=== PATIENT | female | born 1995 | race Caucasian/White ===

== ENCOUNTER 2020-10-27 21:00 | Emergency (ER) | payer BC, OTHER ==
--- NOTE | 2020-10-27 21:08 | EDM.PDOC ---
ED HPI GENERAL MEDICAL PROBLEM - General Stated Complaint: UTI Time Seen by Provider: 10/27/20 21:01 Source of Information: Reports: Patient History Limitations: Reports: No Limitations - History of Present Illness INITIAL COMMENTS - FREE TEXT/NARRATIVE: 25-year-old female history of UTI presents with dysuria today. Patient denies fever, chills, headache, chest pain, shortness of breath, abdominal pain, focal numbness or weakness. ROS: A 10-point review of systems, other than pertinent positives and negatives as stated per HPI, is otherwise negative Past medical history: No additional pertinent history Past Surgical history: No additional pertinent history Social history: No additional pertinent history Family history: No additional pertinent history PHYSICAL EXAM General: AOx4, GCS = 15, No distress HEENT: dry mucous membrane Neck: supple, no meningismus, no Kernig or Brudzinski Cardiac: S1S2 RRR Respiratory: CTAB, no crackles or rales, no wheezing Abdomen: Soft, nontender, no rebound or guarding, nondistended, no pulsatile mass. Back: nontender Musculoskeletal: NVI distally, no deformity Neuro: No focal deficits, CN 2 - 12 WNL. urinary Pain Score (Numeric/FACES): 9 - Related Data Allergies Allergy/AdvReac Type Severity Reaction Status Date / Time No Known Allergies Allergy Verified 10/27/20 21:12 Home Meds: Home Meds Buprenorphine HCl/Naloxone HCl [Suboxone 4 mg-1 mg Sl Film] 8 mg PO DAILY 10/27/20 [History] Phenazopyridine [Pyridium] 100 mg PO TID PRN #15 tab 10/27/20 [Rx] cephALEXin [Keflex] 500 mg PO Q8H #15 cap 10/27/20 [Rx] ED ROS GENERAL - Review of Systems Review Of Systems: See Below (see dictation) ED EXAM, RENAL/ - Physical Exam Exam: See Below (see dictation) Course - Vital Signs Last Recorded V/S: Last Vital Signs Temp 97.8 F 10/27/20 21:12 Pulse 75 10/27/20 21:12 Resp 18 10/27/20 21:12 BP 91/51 L 10/27/20 21:12 Pulse Ox 97 10/27/20 21:12 - Orders/Labs/Meds Orders: Active Orders 24 hr Category Date Time Status CULTURE URINE [RM] Stat Lab 10/27/20 21:01 Received Labs: Laboratory Tests 10/27/20 10/27/20 Range/Units 21:01 21:01 Urine Color YELLOW Urine Appearance SLT CLOUDY Urine pH 7.5 (5.0-8.0) Ur Specific [place] <= 1.005 (1.001-1.035) Urine Protein NEGATIVE (NEGATIVE) mg/dL Urine Glucose (UA) NEGATIVE (NEGATIVE) mg/dL Urine Ketones NEGATIVE (NEGATIVE) mg/dL Urine Occult Blood MODERATE H (NEGATIVE) Urine Nitrite POSITIVE H (NEGATIVE) Urine Bilirubin NEGATIVE (NEGATIVE) Urine Urobilinogen 0.2 (<2.0) EU/dL Ur Leukocyte Esterase MODERATE H (NEGATIVE) Urine RBC 1-3 (0-2/HPF) Urine WBC 10-14 (0-5/HPF) Ur Epithelial Cells FEW (NONE-FEW) Urine Bacteria FEW (NEGATIVE) Urine HCG, Qual NEGATIVE (NEGATIVE) - Re-Assessments/Exams Free Text/Narrative Re-Assessment/Exam: 10/27/20 21:37 She is currently stable for discharge. I performed a repeat exam and did not appreciate new abnormal findings. Patient exhibits normal vital signs and has a normal gait on road test. I advised the patient to return to the ER for reevaluation if symptoms worsened, including fever, worsening pain, or any other worrisome symptoms. I instructed the patient to follow up with their PCP within 2-3 days. MEDICAL DECISION MAKING: I reviewed the patients past medical records, lab and radiographic findings. I discussed the case with the patient. My differential diagnosis included: UTI, cystitis. Departure - Departure Time of Disposition: 21:30 Disposition: Home, Self-Care 01 Condition: Good Clinical Impression: UTI (urinary tract infection) - Discharge Information *PRESCRIPTION DRUG MONITORING PROGRAM REVIEWED*: Not Applicable *COPY OF PRESCRIPTION DRUG MONITORING REPORT IN PATIENT JAZZ: Not Applicable Prescriptions: cephALEXin [Keflex] 500 mg PO Q8H #15 cap Phenazopyridine [Pyridium] 100 mg PO TID PRN #15 tab PRN Reason: Abdominal Pain Instructions: Urinary Tract Infection, Adult Referrals: Andrea Weaver MD [Primary Care Provider] - 3 Days Forms: ED Department Discharge Additional Instructions: The need for follow-up, as well as the timing and circumstances, are variable depending upon the specifics of your emergency department visit. If you don't have a primary care physician on staff, we will provide you with a referral. We always advise you to contact your personal physician following an emergency department visit to inform them of the circumstance of the visit and for follow-up with them and/or the need for any referrals to a consulting specialist. The emergency department will also refer you to a specialist when appropriate. This referral assures that you have the opportunity for follow-up care with a specialist. All of these measure are taken in an effort to provide you with optimal care, which includes your follow-up. Under all circumstances we always encourage you to contact your private physician who remains a resource for coordinating your care. When calling for follow-up care, please make the office aware that this follow-up is from your recent emergency room visit. If for any reason you are refused follow-up, please contact the Emergency Department at and asked to speak to the emergency department charge nurse. If you do not have a primary care doctor, please follow up with the clinics below within 3-5 days. [facility] - Primary Care [address] [place] [id number] [facility] [address] [place] [address] Sepsis Event Note (ED) - Focused Exam Vital Signs: Vital Signs Temp Pulse Resp BP Pulse Ox 10/27/20 21:12 97.8 F 75 18 91/51 L 97 - My Orders Last 24 Hours: My Active Orders 10/27/20 21:01 CULTURE URINE [RM] Stat - Assessment/Plan Last 24 Hours: My Active Orders 10/27/20 21:01 CULTURE URINE [] Stat
== END 2020-10-27 21:47 | disposition home or self-care (01) ==
LOC: MW.ED 21:00
DX: N39.0 Urinary tract infection, site not specified (principal)
CPT/HCPCS: 81001; 81025; 87086; 87088; 87186; 99283

== ENCOUNTER 2021-09-02 15:10 | Observation (INO) | payer MEDICAID, OTHER ==
[2021-09-02] MEDS ORDERED: Sodium Chloride 0.9% 2.5 ML Syringe FLUSH PRN (15:35)
[2021-09-02] MEDS ORDERED: Sodium Chloride 0.9% 10 ML Syringe FLUSH PRN (15:35)
[2021-09-02] MEDS ORDERED: Diphtheria,Pertussis(Acell),Tetanus Vaccine 0.5 ML Syringe IM ONE ×2 (15:36→16:30)
[2021-09-02] MEDS ORDERED: Proparacaine 0.5% Ophth Soln 15 ML Bottle EYEBOTH STA (15:36)
--- NOTE | 2021-09-02 15:51 | EDM.PDOC ---
ED HPI GENERAL MEDICAL PROBLEM - General Chief Complaint: Body Fluid Exposure Stated Complaint: EMS Time Seen by Provider: 09/02/21 15:29 - History of Present Illness INITIAL COMMENTS - FREE TEXT/NARRATIVE: 26-year-old female presents complaining of shortness of breath and chest pain after inhalation. 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 Medics stated that the patient was wheezing for which albuterol was given. The patient is complaining of shortness of breath and chest pain and cough that started just after this inhalation. No eye pain or change in vision. No difficulty swallowing Treatments AGENCY SALES MANAGEMENT ASSISTANT: Reports: Other (see below) Other Treatments AGENCY SALES MANAGEMENT ASSISTANT: duoneb given by EMS chest Pain Score (Numeric/FACES): 8 - Related Data Allergies Allergy/AdvReac Type Severity Reaction Status Date / Time No Known Allergies Allergy Verified 09/02/21 21:06 Home Meds: Home Meds Buprenorphine HCl/Naloxone HCl [Suboxone 4 mg-1 mg Sl Film] 8 mg SL BID 10/27/20 [History] Levothyroxine 50 mcg PO DAILY 09/02/21 [History] Past Medical History HEENT History: Reports: None Cardiovascular History: Reports: None Respiratory History: Reports: None Gastrointestinal History: Reports: None Genitourinary History: Reports: None CHIEF OF STAFF History: Reports: None Musculoskeletal History: Reports: None Neurological History: Reports: None Psychiatric History: Reports: Addiction Endocrine/Metabolic History: Reports: Hypothyroidism Hematologic History: Reports: None Immunologic History: Reports: None Oncologic (Cancer) History: Reports: None - Infectious Disease History Infectious Disease History: Reports: None - Past Surgical History Head Surgeries/Procedures: Reports: None Social & Family History - Family History Family Medical History: No Pertinent Family History - Tobacco Use Tobacco Use Status *Q: Never Tobacco User - Caffeine Use Caffeine Use: Reports: Coffee - Recreational Drug Use Recreational Drug Use: Yes Drug Use in Last 12 Months: No ED ROS GENERAL - Review of Systems Review Of Systems: Comprehensive ROS is negative, except as noted in HPI. ED EXAM, GENERAL - Physical Exam Exam: See Below Free Text/Narrative:: CONSTITUTIONAL: well appearing in no acute distress SKIN: Warm, dry, and intact without rash HENT: Normocephalic, atraumatic. Eyes show no conjunctival injection or tearing. PULMONARY: clear to ausculation bilaterally. No rales, rhonchi, wheezing CARDIOVASCULAR: regular rate, No murmur, rubs, or gallops GASTROINTESTINAL: soft, nondistended, nontender NEUROLOGIC: normal speech, 3 motor function grossly intact MUSCULOSKELETAL: no gross deformities, atraumatic PSYCHIATRIC: normal mood and affect #1 Interpretation Time: 15:45 EKG Interpretation Comments: EKG: NSR, nonspecific ST/T changes, Rate -85 Course - Vital Signs Text/Narrative:: Patient presents after inhalation of mixed chemical cleaning products. The patient did have some mild hypoxia into the 92% range. She has a wet sounding cough that she did not have previous to the inhalation. Chest x-ray does not show any findings with the patient be admitted for observation to ensure that there is no progression of any hypoxia or respiratory distress. Cannot exclude chloramine aspiration or other chemical pneumonitis 3:42 poison control contacted. States most of the toilet bowl director of knowledge management are acidic with 5-15% HCL and some with bleach. States just supportive mnx Last Recorded V/S: Last Vital Signs Temp 36.9 C 09/03/21 04:00 Pulse 80 09/03/21 04:00 Resp 14 09/03/21 04:00 BP 93/47 L 09/03/21 04:00 Pulse Ox 95 09/03/21 04:00 - Orders/Labs/Meds Orders: Active Orders 24 hr Category Date Time Status Cardiac Monitoring [RC] . DIRECTED Care 09/02/21 15:35 Active Pulse Oximetry [RC] ASDIRECTED Care 09/02/21 15:35 Active Vaccine to be Administered/Admin Charge [RC] ASDIRECTED Care 09/02/21 15:37 Active CBC WITH AUTO DIFF [HEME] Stat Lab 09/02/21 15:35 Received Sodium Chloride 0.9% [Saline Flush] Med 09/02/21 15:35 Active 10 ml FLUSH ASDIRECTED PRN Sodium Chloride 0.9% [Saline Flush] Med 09/02/21 15:35 Active 2.5 ml FLUSH ASDIRECTED PRN Saline Lock Insert [OM.PC] Stat Oth 09/02/21 15:35 Ordered Medication Orders Acetaminophen (Acetaminophen 325 Mg Tab) 650 mg PO Q4H PRN PRN Reason: Pain (Mild 1-3)/fever Albuterol/Ipratropium (Albuterol/Ipratropium 3.0-0.5 Mg/3 Ml Neb Soln) 3 ml NEB Q4HRRT PRN PRN Reason: Shortness Of Breath/wheezing Buprenorphine Hcl/Naloxone Hcl [ Suboxone 8mg-2mg] # Own Med# 4 mg SL BID TAYLOR Last Admin: 09/02/21 22:26 Dose: 4 mg Documented by: ALEJANDRINA Ondansetron HCl (Ondansetron 4 Mg/2 Ml Sdv) 4 mg IVPUSH Q4H PRN PRN Reason: Nausea Sodium Chloride (Sodium Chloride 0.9% 10 Ml Syringe) 10 ml FLUSH ASDIRECTED PRN PRN Reason: Keep Vein Open Sodium Chloride (Sodium Chloride 0.9% 2.5 Ml Syringe) 2.5 ml FLUSH ASDIRECTED PRN PRN Reason: Keep Vein Open Labs: Laboratory Tests 09/02/21 Range/Units 15:35 Sodium 136 (136-145) mmol/L Potassium 2.9 L (3.5-5.1) mmol/L Chloride 102 (98-107) mmol/L Carbon Dioxide 25.4 (21.0-32.0) mmol/L BUN 12 (7.0-18.0) mg/dL Creatinine 0.7 (0.6-1.0) mg/dL Est Cr Clr Drug Dosing 100.74 mL/min Estimated GFR (MDRD) > 60.0 ml/min Glucose 128 H (74-106) mg/dL Calcium 8.5 (8.5-10.1) mg/dL Total Bilirubin 0.4 (0.2-1.0) mg/dL AST 15 (15-37) IU/L ALT 23 (14-63) IU/L Alkaline Phosphatase 65 (46-116) U/L Total Protein 7.1 (6.4-8.2) g/dL Albumin 3.4 (3.4-5.0) g/dL Globulin 3.7 (2.6-4.0) g/dL Albumin/Globulin Ratio 0.9 (0.9-1.6) Meds: Medications Generic Name Dose Route Start Last Admin Trade Name Freq PRN Reason Stop Dose Admin Acetaminophen 650 mg 09/02/21 18:21 Acetaminophen 325 Mg Tab PO Q4H PRN Pain (Mild 1-3)/fever Albuterol/Ipratropium 3 ml 09/02/21 18:21 Albuterol/Ipratropium 3.0-0.5 Mg/3 Ml Neb Soln NEB Q4HRRT PRN Shortness Of Breath/wheezing Buprenorphine Hcl/ 4 mg 09/02/21 22:00 09/02/21 22:26 Naloxone Hcl [ SL 4 mg Suboxone 8mg-2mg] # BID ATYLOR Administration Own Med# Ondansetron HCl 4 mg 09/02/21 18:21 Ondansetron 4 Mg/2 Ml Sdv IVPUSH Q4H PRN Nausea Sodium Chloride 10 ml 09/02/21 15:35 Sodium Chloride 0.9% 10 Ml Syringe FLUSH ASDIRECTED PRN Keep Vein Open Sodium Chloride 2.5 ml 09/02/21 15:35 Sodium Chloride 0.9% 2.5 Ml Syringe FLUSH ASDIRECTED PRN Keep Vein Open Discontinued Medications Generic Name Dose Route Start Last Admin Trade Name Freq PRN Reason Stop Dose Admin Diphtheria/Tetanus/Acell Pertussis 0.5 ml 09/02/21 16:30 09/02/21 16:57 Diphtheria,Pertussis(Acell),Tetanus Vaccine 0.5 Ml Syringe IM 09/02/21 16:31 0.5 ml .ONCE ONE Administration Fluorescein Sodium 1 mg 09/02/21 16:19 09/02/21 17:54 Fluorescein 1 Mg Ophth Strip EYEBOTH 09/02/21 16:20 Not Given ONETIME ONE Potassium Chloride 40 meq 09/02/21 16:23 09/02/21 16:58 Potassium Chloride 20 Meq Tab.Er PO 09/02/21 16:24 40 meq ONETIME ONE Administration Potassium Chloride 40 meq 09/02/21 21:25 09/02/21 22:25 Potassium Chloride 20 Meq Tab.Er PO 09/02/21 21:26 40 meq ONETIME ONE Administration Proparacaine HCl 1 ml 09/02/21 15:36 09/02/21 17:07 Proparacaine 0.5% Ophth Soln 15 Ml Bottle EYEBOTH 09/02/21 15:37 Not Given NOW STA Tetracaine HCl 1 ml 09/02/21 16:54 09/02/21 17:07 Tetracaine Hcl/Pf 0.5% 4 Ml Bottle EYEBOTH 09/02/21 16:55 Not Given ASDIRECTED ONE Departure - Departure Time of Disposition: 18:06 Disposition: Refer to Observation Condition: Good Clinical Impression: Chemical pneumonitis, Hypoxia - Discharge Information Sepsis Event Note (ED) - Evaluation Sepsis Screening Result: No Definite Risk - My Orders Last 24 Hours: My Active Orders 09/02/21 15:35 Cardiac Monitoring [RC] . DIRECTED Pulse Oximetry [RC] ASDIRECTED CBC WITH AUTO DIFF [HEME] Stat Sodium Chloride 0.9% [Saline Flush] 10 ml FLUSH ASDIRECTED PRN Sodium Chloride 0.9% [Saline Flush] 2.5 ml FLUSH ASDIRECTED PRN Saline Lock Insert [OM.PC] Stat 09/02/21 15:37 Vaccine to be Administered/Admin Charge [RC] ASDIRECTED - Assessment/Plan Last 24 Hours: My Active Orders 09/02/21 15:35 Cardiac Monitoring [RC] . DIRECTED Pulse Oximetry [RC] ASDIRECTED CBC WITH AUTO DIFF [HEME] Stat Sodium Chloride 0.9% [Saline Flush] 10 ml FLUSH ASDIRECTED PRN Sodium Chloride 0.9% [Saline Flush] 2.5 ml FLUSH ASDIRECTED PRN Saline Lock Insert [OM.PC] Stat 09/02/21 15:37 Vaccine to be Administered/Admin Charge [RC] ASDIRECTED
[2021-09-02 16:07] LABS: BLOOD UREA NITROGEN,BUN 12 mg/dL (7.0-18.0); CARBON DIOXIDE,CO2 25.4 mmol/L (21.0-32.0); CHLORIDE,CL 102 mmol/L (98-107); GLUCOSE RANDOM 128 mg/dL (74-106); POTASSIUM,K 2.9 mmol/L (3.5-5.1); SODIUM,NA 136 mmol/L (136-145)
[2021-09-02] MEDS ORDERED: Fluorescein 1 MG Ophth Strip EYEBOTH ONE (16:19)
[2021-09-02] MEDS ORDERED: Potassium Chloride 20 MEQ Tab.ER PO ONE ×2 (16:23→21:25)
--- NOTE | 2021-09-02 16:24 | CR ---
INDICATION: Chest pain. Inhaled chemicals. TECHNIQUE: Chest 1 view. COMPARISON: None. FINDINGS: Cardiovascular and mediastinum: Heart size and vasculature are normal in caliber and appearance. Lungs and pleural spaces: Lungs are clear. No sign of infiltrate or mass. No sign of pleural effusion. No pneumothorax. Bones and soft tissues: No significant findings. IMPRESSION: Negative chest. Dictated by Jesse Vásquez MD @ 09/02/2021 4:22:48 PM (Electronically Signed)
[2021-09-02] MEDS ORDERED: Tetracaine HCl/PF 0.5% 4 ML Bottle EYEBOTH ONE (16:54)
--- NOTE | 2021-09-02 18:17 | PCM.HP.2 ---
H&P History of Present Illness - General Date of Service: 09/02/21 Admit Problem/Dx: Admission Diagnosis/Problem Admission Diagnosis/Problem Hypoxia - History of Present Illness Initial Comments - Free Text/Narative: 26-year-old female with a history of hypothyroidism presents to the ER after she was mixing cleaning solutions and accidentally inhaled. 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 When she opened the bottle she states "gas" came out and made contact with her face and she also inhaled. She immediately began coughing and felt her face burning. She ran up to the sink and washed her face. She felt dizzy and laid on the ground. She was brought to the ER. Poison control was contacted by the ER and they stated that most of the level electric meter tester are acidic with 5 to 15% HCl and some with bleach. Advised supportive management. Patient's temperature is 35.8. Pulse is 80. Blood pressure is 110/60. Saturating 95% on room air. CBC unremarkable. Initial potassium was 2.9 and was repleted. Patient received tetanus vaccination. Patient continues to cough and will be admitted for chemical pneumonitis. Patient denies smoking. Patient denies illicit drug use. Social alcohol use only. CODE STATUS: Full code. chest Pain Score (Numeric/FACES): 8 - Related Data Allergies/Adverse Reactions: Allergies Allergy/AdvReac Type Severity Reaction Status Date / Time No Known Allergies Allergy Verified 09/02/21 21:06 Home Medications: Home Meds Buprenorphine HCl/Naloxone HCl [Suboxone 4 mg-1 mg Sl Film] 8 mg SL BID 10/27/20 [History] Levothyroxine 50 mcg PO DAILY 09/02/21 [History] Past Medical History HEENT History: Reports: None Cardiovascular History: Reports: None Respiratory History: Reports: None Gastrointestinal History: Reports: None Genitourinary History: Reports: None DIRECTOR GLOBAL DEVELOPMENT History: Reports: None Musculoskeletal History: Reports: None Neurological History: Reports: None Psychiatric History: Reports: Addiction Endocrine/Metabolic History: Reports: Hypothyroidism Hematologic History: Reports: None Immunologic History: Reports: None Oncologic (Cancer) History: Reports: None - Infectious Disease History Infectious Disease History: Reports: None - Past Surgical History Head Surgeries/Procedures: Reports: None Social & Family History - Family History Family Medical History: No Pertinent Family History - Tobacco Use Tobacco Use Status *Q: Never Tobacco User - Caffeine Use Caffeine Use: Reports: Coffee - Recreational Drug Use Recreational Drug Use: Yes Drug Use in Last 12 Months: No H&P Review of Systems - Review of Systems: Review Of Systems: See Below General: Denies: Fever, Chills HEENT: Reports: Headaches Pulmonary: Reports: Shortness of Breath, Cough. Denies: Sputum Cardiovascular: Denies: Chest Pain, Palpitations Gastrointestinal: Denies: Abdominal Pain, Anorexia, Nausea, Vomiting Genitourinary: Denies: Dysuria Musculoskeletal: Denies: Leg Pain Skin: Denies: Cyanosis, Rash Neurological: Denies: Confusion, Dizziness, Numbness, Paresthesia Exam - Exam Exam: See Below - Vital Signs Vital Signs: Last Vital Signs Temp 98.1 F 09/02/21 17:55 Pulse 80 09/02/21 17:55 Resp 18 09/02/21 17:55 BP 105/51 L 09/02/21 17:55 Pulse Ox 98 09/02/21 17:55 Weight: 125 lb - Exam General: Alert, Oriented, Cooperative. No: Mild Distress HEENT: Conjunctiva Clear, EACs Clear, EOMI, Mucosa Moist & [place], Nares Patent, Normal Nasal Septum, Posterior Pharynx Clear, Pupils Equal. No: Rhinitis Neck: Supple, Trachea Midline, Full Range of Motion Lungs: Clear to Auscultation Cardiovascular: Regular Rate, Regular Rhythm GI/Abdominal Exam: Normal Bowel Sounds, Soft, Non-Tender Back Exam: Normal Inspection Extremities: Normal Inspection, No Pedal Edema Peripheral Pulses: 2+: Dorsalis Pedis (L), Dorsalis Pedis (R) Skin: Warm, Dry, Intact Neurological: Cranial Nerves Intact. No: Focal Deficit - Patient Data Lab Results Last 24 hrs: Laboratory Results - last 24 hr 09/02/21 Range/Units 15:35 Sodium 136 (136-145) mmol/L Potassium 2.9 L (3.5-5.1) mmol/L Chloride 102 (98-107) mmol/L Carbon Dioxide 25.4 (21.0-32.0) mmol/L BUN 12 (7.0-18.0) mg/dL Creatinine 0.7 (0.6-1.0) mg/dL Est Cr Clr Drug Dosing 100.74 mL/min Estimated GFR (MDRD) > 60.0 ml/min Glucose 128 H (74-106) mg/dL Calcium 8.5 (8.5-10.1) mg/dL Total Bilirubin 0.4 (0.2-1.0) mg/dL AST 15 (15-37) IU/L ALT 23 (14-63) IU/L Alkaline Phosphatase 65 (46-116) U/L Total Protein 7.1 (6.4-8.2) g/dL Albumin 3.4 (3.4-5.0) g/dL Globulin 3.7 (2.6-4.0) g/dL Albumin/Globulin Ratio 0.9 (0.9-1.6) Result Diagrams: 09/03/21 06:18 09/03/21 06:18 Sepsis Event Note - Evaluation Sepsis Screening Result: No Definite Risk - Focused Exam Vital Signs: Vital Signs Temp Pulse Resp BP Pulse Ox 09/02/21 17:55 98.1 F 80 18 105/51 L 98 09/02/21 16:40 80 108/59 L 94 L 09/02/21 15:40 86 112/53 L 94 L 09/02/21 15:21 96.5 F L 88 20 106/53 L 98 - Problem List (1) Chemical pneumonitis SNOMED Code(s): 702872367 ICD Code: J68.0 - BRONCHITIS & PNEUMONITIS D/T CHEMICALS, GAS, FUMES & VAPORS Status: Acute Current Visit: Yes Problem List Initiated/Reviewed/Updated: Yes Orders Last 24hrs: Active Orders 24 hr Category Date Time Status Admission Status [Patient Status] [ADT] Stat ADT 09/02/21 18:04 Active Cardiac Monitoring [RC] . DIRECTED Care 09/02/21 15:35 Active Pulse Oximetry [RC] ASDIRECTED Care 09/02/21 15:35 Active Vaccine to be Administered/Admin Charge [RC] ASDIRECTED Care 09/02/21 15:37 Active CBC WITH AUTO DIFF [HEME] Stat Lab 09/02/21 15:35 Received CORONAVIRUS COVID-19 SIDRA [MOLEC] Stat Lab 09/02/21 18:06 Received Sodium Chloride 0.9% [Saline Flush] Med 09/02/21 15:35 Active 10 ml FLUSH ASDIRECTED PRN Sodium Chloride 0.9% [Saline Flush] Med 09/02/21 15:35 Active 2.5 ml FLUSH ASDIRECTED PRN Saline Lock Insert [OM.PC] Stat Oth 09/02/21 15:35 Ordered Medication Orders Sodium Chloride (Sodium Chloride 0.9% 10 Ml Syringe) 10 ml FLUSH ASDIRECTED PRN PRN Reason: Keep Vein Open Sodium Chloride (Sodium Chloride 0.9% 2.5 Ml Syringe) 2.5 ml FLUSH ASDIRECTED PRN PRN Reason: Keep Vein Open Assessment/Plan Comment:: Chemical inhalation injury: Poison control recommended monitoring. -Telemetry. Zofran for nausea/vomiting. IV fluids. Repleted potassium. CODE STATUS: Full code.
[2021-09-02] MEDS ORDERED: Acetaminophen 325 MG Tab PO PRN (18:21)
[2021-09-02] MEDS ORDERED: Albuterol/Ipratropium 3.0-0.5 MG/3 ML Neb Soln NEB PRN (18:21)
[2021-09-02] MEDS ORDERED: Ondansetron 4 MG/2 ML SDV IVPUSH PRN (18:21)
[2021-09-02] MEDS: NALOXONE HCL SL SCH (22:26)
[2021-09-02] MEDS: BUPRENORPHINE HCL SL SCH (22:26)
[2021-09-03 07:54] LABS: BLOOD UREA NITROGEN,BUN 10 mg/dL (7.0-18.0); CARBON DIOXIDE,CO2 20.5 mmol/L (21.0-32.0); CHLORIDE,CL 105 mmol/L (98-107); GLUCOSE RANDOM 94 mg/dL (74-106); SODIUM,NA 134 mmol/L (136-145)
--- NOTE | 2021-09-03 09:17 | PCM.DCSUM1 ---
Discharge Summary - Hospital Course Free Text/Narrative:: 26-year-old female with a history of hypothyroidism presented to the ER after she was mixing cleaning solutions and accidentally inhaled. 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 When she opened the bottle she states "gas" came out and made contact with her face and she also inhaled. She immediately began coughing and felt her face burning. She ran up to the sink and washed her face. She felt dizzy and laid on the ground. She was brought to the ER. 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 Advised supportive management. Chest x-ray was unremarkable. Initial potassium was 2.9 and was repleted. Patient received tetanus vaccination. Patient was monitored overnight. Telemetry was unremarkable. Morning CBC and CMP were unremarkable. Potassium was 4.0. Patient is breathing normally on room air with no signs of distress or airway edema. Lungs are clear to auscultation bilaterally. Oral mucosa is moist. Patient denies cough. Patient denies difficulty breathing. Poison control was contacted this morning and they stated patient was cleared. Patient stable at discharge. - Discharge Data Discharge Date: 09/03/21 Discharge Disposition: Home, Self-Care 01 Condition: Stable - Referral to Home Health Primary Care Physician: Andrea Weaver MD - Discharge Diagnosis/Problem(s) (1) Chemical pneumonitis SNOMED Code(s): 976866686 ICD Code: J68.0 - BRONCHITIS & PNEUMONITIS D/T CHEMICALS, GAS, FUMES & VAPORS Status: Acute Current Visit: Yes - Patient Instructions Diet: Regular Diet as Tolerated Notify Provider of: Fever, Increased Pain Other/Special Instructions: You are monitored in the hospital for inhalation injury as per recommendations from poison control. Please avoid chemicals which may cause injury in the future. If you experience chest pain, palpitations, wheezing, difficulty breathing, air hunger, fever, chills, peeling of skin, dizziness, loss of consciousness, swelling in your legs please seek medical attention immediately. - Discharge Plan *PRESCRIPTION DRUG MONITORING PROGRAM REVIEWED*: Not Applicable *COPY OF PRESCRIPTION DRUG MONITORING REPORT IN PATIENT JAZZ: Not Applicable Home Medications: Home Meds Buprenorphine HCl/Naloxone HCl [Suboxone 4 mg-1 mg Sl Film] 8 mg SL BID 10/27/20 [History] Levothyroxine 50 mcg PO DAILY 09/02/21 [History] Oxygen Therapy Mode: Room Air Forms: ED Department Discharge Referrals: Andrea Weaver MD [Primary Care Provider] - - Discharge Summary/Plan Comment DC Time >30 min.: Yes Total # of Minutes for Discharge Time: 45 - General Info Admission Dx/Problem (Free Text: Admission Diagnosis/Problem Admission Diagnosis/Problem Hypoxia - Review of Systems General: Denies: Fever, Chills HEENT: Denies: Dysphasia, Ear Pain, Eye Pain, Headaches, Sinus Congestion, Sore Throat, Rhinitis, Visual Changes Pulmonary: Denies: Shortness of Breath, Cough, Wheezing Cardiovascular: Denies: Chest Pain, Palpitations, Edema Gastrointestinal: Denies: Abdominal Pain, Difficulty Swallowing, Nausea, Vomiting Genitourinary: Denies: Dysuria Skin: Denies: Rash Neurological: Denies: Confusion, Dizziness, Headache, Numbness, Paresthesia, Pre-Existing Deficit - Patient Data Vitals - Most Recent: Last Vital Signs Temp 98.5 F 09/03/21 04:00 Pulse 80 09/03/21 04:00 Resp 14 09/03/21 04:00 BP 93/47 L 09/03/21 04:00 Pulse Ox 95 09/03/21 04:00 Weight - Most Recent: 135 lb 1.6 oz Lab Results - Last 24 hrs: Laboratory Results - last 24 hr 09/02/21 09/02/21 09/02/21 Range/Units 15:35 15:35 18:06 WBC 11.15 H (4.0-11.0) K/uL RBC 4.12 L (4.30-5.90) M/uL Hgb 13.2 (12.0-16.0) g/dL Hct 37.8 (36.0-46.0) % MCV 91.7 (80.0-98.0) fL MCH 32.0 (27.0-32.0) pg MCHC 34.9 (31.0-37.0) g/dL RDW Std Deviation 44.9 (28.0-62.0) fl RDW Coeff of Frank 14 (11.0-15.0) % Plt Count 204 (150-400) K/uL MPV 10.90 (7.40-12.00) fL Neut % (Auto) 84.2 H (48.0-80.0) % Lymph % (Auto) 9.9 L (16.0-40.0) % [place] % (Auto) 5.4 (0.0-15.0) % Eos % (Auto) 0.4 (0.0-7.0) % Baso % (Auto) 0.1 (0.0-1.5) % Neut # (Auto) 9.4 H (1.4-5.7) K/uL Lymph # (Auto) 1.1 (0.6-2.4) K/uL [place] # (Auto) 0.6 (0.0-0.8) K/uL Eos # (Auto) 0.1 (0.0-0.7) K/uL Baso # (Auto) 0.0 (0.0-0.1) K/uL Nucleated RBC % 0.0 /100WBC Nucleated RBCs # 0 K/uL Sodium 136 (136-145) mmol/L Potassium 2.9 L (3.5-5.1) mmol/L Chloride 102 (98-107) mmol/L Carbon Dioxide 25.4 (21.0-32.0) mmol/L BUN 12 (7.0-18.0) mg/dL Creatinine 0.7 (0.6-1.0) mg/dL Est Cr Clr Drug Dosing 100.74 mL/min Estimated GFR (MDRD) > 60.0 ml/min Glucose 128 H (74-106) mg/dL Calcium 8.5 (8.5-10.1) mg/dL Total Bilirubin 0.4 (0.2-1.0) mg/dL AST 15 (15-37) IU/L ALT 23 (14-63) IU/L Alkaline Phosphatase 65 (46-116) U/L Total Protein 7.1 (6.4-8.2) g/dL Albumin 3.4 (3.4-5.0) g/dL Globulin 3.7 (2.6-4.0) g/dL Albumin/Globulin Ratio 0.9 (0.9-1.6) SARS-CoV-2 RNA (SIDRA) NEGATIVE (NEGATIVE) 09/03/21 09/03/21 Range/Units 06:18 06:18 WBC 10.79 (4.0-11.0) K/uL RBC 3.90 L (4.30-5.90) M/uL Hgb 12.5 (12.0-16.0) g/dL Hct 36.1 (36.0-46.0) % MCV 92.6 (80.0-98.0) fL MCH 32.1 H (27.0-32.0) pg MCHC 34.6 (31.0-37.0) g/dL RDW Std Deviation 46.3 (28.0-62.0) fl RDW Coeff of Frank 14 (11.0-15.0) % Plt Count 183 (150-400) K/uL MPV 10.00 (7.40-12.00) fL Neut % (Auto) (48.0-80.0) % Lymph % (Auto) (16.0-40.0) % [place]ill % (Auto) (0.0-15.0) % Eos % (Auto) (0.0-7.0) % Baso % (Auto) (0.0-1.5) % Neut # (Auto) (1.4-5.7) K/uL Lymph # (Auto) (0.6-2.4) K/uL [place] # (Auto) (0.0-0.8) K/uL Eos # (Auto) (0.0-0.7) K/uL Baso # (Auto) (0.0-0.1) K/uL Nucleated RBC % 0.0 /100WBC Nucleated RBCs # 0 K/uL Sodium 134 L (136-145) mmol/L Potassium 4.0 (3.5-5.1) mmol/L Chloride 105 (98-107) mmol/L Carbon Dioxide 20.5 L (21.0-32.0) mmol/L BUN 10 (7.0-18.0) mg/dL Creatinine 0.6 (0.6-1.0) mg/dL Est Cr Clr Drug Dosing 117.54 mL/min Estimated GFR (MDRD) > 60.0 ml/min Glucose 94 (74-106) mg/dL Calcium 8.3 L (8.5-10.1) mg/dL Total Bilirubin 0.4 (0.2-1.0) mg/dL AST 16 (15-37) IU/L ALT 14 (14-63) IU/L Alkaline Phosphatase 62 (46-116) U/L Total Protein 6.2 L (6.4-8.2) g/dL Albumin 2.8 L (3.4-5.0) g/dL Globulin 3.4 (2.6-4.0) g/dL Albumin/Globulin Ratio 0.8 L (0.9-1.6) SARS-CoV-2 RNA (SIDRA) (NEGATIVE) Med Orders - Current: Current Medications Acetaminophen (Acetaminophen 325 Mg Tab) 650 mg PO Q4H PRN PRN Reason: Pain (Mild 1-3)/fever Albuterol/Ipratropium (Albuterol/Ipratropium 3.0-0.5 Mg/3 Ml Neb Soln) 3 ml NEB Q4HRRT PRN PRN Reason: Shortness Of Breath/wheezing Buprenorphine Hcl/Naloxone Hcl [ Suboxone 8mg-2mg] # Own Med# 4 mg SL BID TAYLOR Last Admin: 09/02/21 22:26 Dose: 4 mg Documented by: Ondansetron HCl (Ondansetron 4 Mg/2 Ml Sdv) 4 mg IVPUSH Q4H PRN PRN Reason: Nausea Sodium Chloride (Sodium Chloride 0.9% 10 Ml Syringe) 10 ml FLUSH ASDIRECTED PRN PRN Reason: Keep Vein Open Sodium Chloride (Sodium Chloride 0.9% 2.5 Ml Syringe) 2.5 ml FLUSH ASDIRECTED PRN PRN Reason: Keep Vein Open Discontinued Medications Diphtheria/Tetanus/Acell Pertussis (Diphtheria,Pertussis(Acell),Tetanus Vaccine 0.5 Ml Syringe) 0.5 ml IM .ONCE ONE Stop: 09/02/21 16:31 Last Admin: 09/02/21 16:57 Dose: 0.5 ml Documented by: Fluorescein Sodium (Fluorescein 1 Mg Ophth Strip) 1 mg EYEBOTH ONETIME ONE Stop: 09/02/21 16:20 Last Admin: 09/02/21 17:54 Dose: Not Given Documented by: Potassium Chloride (Potassium Chloride 20 Meq Tab.Er) 40 meq PO ONETIME ONE Stop: 09/02/21 16:24 Last Admin: 09/02/21 16:58 Dose: 40 meq Documented by: Potassium Chloride (Potassium Chloride 20 Meq Tab.Er) 40 meq PO ONETIME ONE Stop: 09/02/21 21:26 Last Admin: 09/02/21 22:25 Dose: 40 meq Documented by: Proparacaine HCl (Proparacaine 0.5% Ophth Soln 15 Ml Bottle) 1 ml EYEBOTH NOW STA Stop: 09/02/21 15:37 Last Admin: 09/02/21 17:07 Dose: Not Given Documented by: Tetracaine HCl (Tetracaine Hcl/Pf 0.5% 4 Ml Bottle) 1 ml EYEBOTH ASDIRECTED ONE Stop: 09/02/21 16:55 Last Admin: 09/02/21 17:07 Dose: Not Given Documented by: - Exam Quality Assessment: Denies: Supplemental Oxygen General: Reports: Alert, Oriented, Cooperative, No Acute Distress HEENT: Reports: Pupils Equal, Pupils Reactive, Mucous Membr. Moist/[place] Neck: Reports: Supple, Trachea Midline. Denies: Lymphadenopathy Lungs: Reports: Clear to Auscultation, Normal Respiratory Effort. Denies: Wheezing Cardiovascular: Reports: Regular Rate, Regular Rhythm GI/Abdominal Exam: Normal Bowel Sounds, Soft, Non-Tender Back Exam: Reports: Normal Inspection Extremities: Normal Inspection, Normal Range of Motion, Non-Tender, No Pedal Edema. No: Rah's Sign, Leg Pain Skin: Reports: Warm, Dry, Intact. Denies: Rash Neurological: Reports: No New Focal Deficit
[2021-09-03] MEDS: BUPRENORPHINE HCL SL SCH (09:35)
[2021-09-03] MEDS: NALOXONE HCL SL SCH (09:35)
== END 2021-09-03 11:25 | disposition home or self-care (01) ==
LOC: MW.ED 15:10 → MW.MS 18:04
PROVIDERS: ADMIT Internal Medicine; ATTEND Internal Medicine
DX: J68.0 Bronchitis and pneumonitis due to chemicals, gases, fumes and vapors (principal); T65.891A Toxic effect of other specified substances, accidental (unintentional), initial encounter; E03.9 Hypothyroidism, unspecified; Z79.899 Other long term (current) drug therapy; Z79.890 Hormone replacement therapy; Z20.822 Contact with and (suspected) exposure to COVID-19
CPT/HCPCS: 36415; 71045; 80053; 85025; 85027; 87635; 90471; 90715; 93005; 99285; A9270; G0378; U0002

== ENCOUNTER 2022-01-08 09:58 | Inpatient (IN) | payer MEDICAID ==
[2022-01-08] MEDS ORDERED: Citric Acid/Sodium Citrate Solution 30 ML Cup PO ONE (10:51)
[2022-01-08] MEDS ORDERED: Sodium Chloride 0.9% 2.5 ML Syringe FLUSH PRN (10:51)
[2022-01-08] MEDS ORDERED: Sodium Chloride 0.9% 20 ML SDV IV PRN (10:51)
[2022-01-08] MEDS ORDERED: ceFAZolin 1 GM in Premix Bag 1 BAG IV ONE (10:51)
[2022-01-08] MEDS ORDERED: Sodium Chloride 0.9% 10 ML Syringe FLUSH PRN (10:51)
[2022-01-08] MEDS ORDERED: Dexmedetomidine 200 MCG/2 ML SDV ONE (10:53)
[2022-01-08] MEDS: Lactated Ringers 1,000 ML IV SCH ×2 (11:00→11:42)
[2022-01-08] MEDS ORDERED: Oxytocin/0.9 % Sodium Chloride 30 UNIT/500 ML BAG IV SCH (11:00)
[2022-01-08] MEDS ORDERED: Morphine PF 10 MG/10 ML SDV ONE (11:07)
[2022-01-08] MEDS ORDERED: ceFAZolin 2 GM in Premix Bag 1 BAG IV ONE (11:20)
[2022-01-08] MEDS ORDERED: Bupivacaine 0.5% 10 ML SDV ONE (11:37)
[2022-01-08] MEDS ORDERED: Dexamethasone 4 MG/ML 5 ML MDV ONE (11:51)
[2022-01-08] MEDS ORDERED: Misoprostol 200 MCG Tab RECTAL PRN (13:32)
[2022-01-08] MEDS ORDERED: Oxytocin 10 Units/1 ML SDV IM PRN (13:32)
[2022-01-08] MEDS ORDERED: Acetaminophen/oxyCODONE 325-5 MG Tab PO PRN (13:32)
[2022-01-08] MEDS ORDERED: Methylergonovine 0.2 MG/1 ML Amp IM PRN (13:32)
[2022-01-08] MEDS ORDERED: Tranexamic Acid 1,000 MG in Sodium Chloride 0.9% 100 ML IV PRN (13:32)
[2022-01-08] MEDS ORDERED: diphenhydrAMINE 50 MG/ML SDV IVPUSH PRN ×2 (13:32→14:19)
[2022-01-08] MEDS ORDERED: Bisacodyl 10 MG Supp RECTAL PRN (13:32)
[2022-01-08] MEDS ORDERED: Ondansetron 4 MG/2 ML SDV IVPUSH PRN ×3 (13:32→14:21)
[2022-01-08] MEDS ORDERED: Lanolin 100% Cream 7 GM Tube TOP PRN (13:32)
[2022-01-08] MEDS ORDERED: Bupivacaine 0.25% 30 ML SDV ONE (13:37)
[2022-01-08] MEDS ORDERED: Lactated Ringers 1,000 ML IV SCH (13:45)
[2022-01-08] MEDS ORDERED: Ketorolac 30 MG/ML SDV IVPUSH SCH (14:00)
[2022-01-08] MEDS ORDERED: Naloxone 0.4 MG/ML SDV IVPUSH PRN ×2 (14:19→14:21)
[2022-01-08] MEDS ORDERED: fentaNYL 100 MCG/2 ML SDV IVPUSH PRN ×2 (14:19→14:21)
[2022-01-08] MEDS ORDERED: Albuterol 0.083% 2.5 MG/3 ML Neb Soln NEB PRN (14:21)
[2022-01-08] MEDS ORDERED: HYDROmorphone 1 MG/ML Syringe IVPUSH PRN (14:21)
[2022-01-09] MEDS: Docusate Sodium 100 MG Cap PO SCH ×3 (02:22→20:01)
[2022-01-09] MEDS: Ketorolac 30 MG/ML SDV IVPUSH SCH ×3 (02:31→14:17)
[2022-01-09] MEDS: Acetaminophen/oxyCODONE 325-5 MG Tab PO PRN ×2 (18:06→22:56)
[2022-01-09] MEDS: Ibuprofen 800 MG Tab PO PRN (20:00)
[2022-01-10] MEDS: Ibuprofen 800 MG Tab PO PRN ×2 (04:05→12:03)
[2022-01-10] MEDS: Acetaminophen/oxyCODONE 325-5 MG Tab PO PRN ×2 (05:52→10:20)
[2022-01-10] MEDS: Docusate Sodium 100 MG Cap PO SCH (10:20)
== END 2022-01-10 17:00 | disposition home or self-care (01) | DRG 787 ==
LOC: MW.OBCHECK 09:58 → MW.OB 10:00 → MW.OBCHECK 10:51 → MW.OB 10:52
PROVIDERS: ADMIT Obstetrics & Gynecology; ATTEND Obstetrics & Gynecology
PROC: 10D00Z1 Extraction of Products of Conception, Low, Open Approach (ICD-10-PCS; principal; 2022-01-08)
DX: O34.211 Maternal care for low transverse scar from previous cesarean delivery (principal); O99.324 Drug use complicating childbirth; Z37.0 Single live birth; Z20.822 Contact with and (suspected) exposure to COVID-19; O99.284 Endocrine, nutritional and metabolic diseases complicating childbirth; E03.9 Hypothyroidism, unspecified; F11.10 Opioid abuse, uncomplicated; Z3A.39 39 weeks gestation of pregnancy
CPT/HCPCS: 36415; 59025; 85014; 85018; 85027; 86592; 86850; 86900; 86901; A9270-GY; J1100; J1885; J2274; J3490; J7120; U0002

== ENCOUNTER 2023-03-15 17:52 | Emergency (ER) | payer MEDICAID ==
[2023-03-15] MEDS ORDERED: Tetracaine HCl/PF 0.5% 4 ML Bottle EYELF STA (21:03)
[2023-03-15] MEDS ORDERED: Tobramycin 0.3% Ophth Drops 5 ML Bottle EYELF STA (21:57)
[2023-03-15] MEDS ORDERED: Ciprofloxacin 0.3% Ophth Soln 2.5 ML Bottle EYELF STA (22:07)
[2023-03-15] MEDS ORDERED: Ketorolac 10 MG Tab PO STA (22:17)
== END 2023-03-15 22:36 | disposition home or self-care (01) ==
LOC: MW.ED 17:52
DX: H18.822 Corneal disorder due to contact lens, left eye (principal); E03.9 Hypothyroidism, unspecified; Z79.899 Other long term (current) drug therapy; Z98.890 Other specified postprocedural states
CPT/HCPCS: 99283; A9270; J3490